=== PATIENT | male | born 1995 | race Caucasian/White ===

== ENCOUNTER 2022-12-22 11:10 | Emergency (ER) | payer MEDICAID, SELFPAY ==
[2022-12-22 11:13] VITALS: BP 118/78; PULSE 78; RESP 18; TEMP 36.6; O2SAT 99; BMI 20.9
--- NOTE | 2022-12-22 11:14 | XR_ITS ---
The [address] [address] Patient Name: SAYRA SALVADOR MRN: [id number] date: 1995 Sex: M Assigned Patient Location: ER Current Patient Location: ED.MAIN Accession/Order Number: [id number] Exam Date: 12/22/2022 11:25 Report Date: 12/22/2022 11:53 At the request of: ISAIAS ALVAREZ Procedure: XR hand LT 2V EXAM: XR hand LT 2V HISTORY: Pain COMPARISON: None. TECHNIQUE: 3 views of the left hand FINDINGS: There is no acute fracture-dislocation. No cortical erosion or focal osteopenia to suggest acute osteomyelitis. There is soft tissue swelling of the dorsal hand. XR/XR hand LT 2V IMPRESSION: No acute fracture. soft tissue swelling of the dorsal hand. Electronically authenticated by: MAIKOL ALEMAN Date: 12/22/2022 11:53
--- NOTE | 2022-12-22 11:15 | ED.UPPEXIN1 ---
HPI - Extremity Injury (Upper) General Chief Complaint: Extremity Injury, Upper Stated Complaint: UPPER EXTREMITY INJURY Time Seen by Provider: 12/22/22 11:14 Source: patient Mode of arrival: walk-in Limitations: no limitations History of Present Illness HPI narrative: patient here is an injury to his left hand. He had blunt trauma after hitting a wall last night. No other traumas or injuries at this time. Related Data Home Medications Medication Instructions Recorded Confirmed No Known Home Medications 12/22/22 12/22/22 Allergies Allergy/AdvReac Type Severity Reaction Status Date / Time amoxicillin AdvReac Intermediate Verified 12/22/22 11:12 Exam Narrative Exam Narrative: very pleasant oriented ?3 no other apparent injuries. Examination the right hand is normal. His left hand sustained the injury and he is left-handed dominant. He's got abrasions contusions and swelling over the 4th and 5th metatarsal metacarpals. He admits that he had a boxer fracture several years ago as well on the same hand. No other injuries are noted today. Neurovascular examination distally is normal. X-rays are pending Constitutional Vital Signs, click to edit/add: Last Vital Signs Temp 97.8 F 12/22/22 11:13 Pulse 78 12/22/22 11:13 Resp 18 12/22/22 11:13 BP 118/78 12/22/22 11:13 Pulse Ox 99 12/22/22 11:13 O2 Del Method Room Air 12/22/22 11:13 Course Vital Signs Vital signs: Vital Signs Temperature 97.8 F 12/22/22 11:13 Pulse Rate 78 12/22/22 11:13 Respiratory Rate 18 12/22/22 11:13 Blood Pressure 118/78 12/22/22 11:13 Pulse Oximetry 99 12/22/22 11:13 Oxygen Delivery Method Room Air 12/22/22 11:13 Temperature 97.8 F 12/22/22 11:13 Pulse Rate 78 12/22/22 11:13 Respiratory Rate 18 12/22/22 11:13 Blood Pressure 118/78 12/22/22 11:13 Pulse Oximetry 99 12/22/22 11:13 Oxygen Delivery Method Room Air 12/22/22 11:13 MDM - Extremity Injury (Upper) MDM Narrative Medical decision making narrative: x-rays are normal. He'll be placed in a hand splint. Ice and elevation were advice. This does not appear to be a bite type of injury. Discharge Plan Discharge Chief Complaint: Extremity Injury, Upper Clinical Impression: Contusion of hand, left Patient Disposition: Home, Self-Care Time of Disposition Decision: 11:42 Prescriptions / Home Meds: No Action No Known Home Medications Additional Instructions: ice/elevate wear splint for several days Stand Alone Forms: Portal Instructions Referrals: Physician,Non-Staff, MD [Primary Care Provider] - 1 week
== END 2022-12-22 11:56 | disposition home or self-care (01) ==
PROVIDERS: Emergency Provider Emergency Medicine Emergency Medical Services
DX: S60.222A Contusion of left hand, initial encounter (principal); W22.01XA Walked into wall, initial encounter
CPT/HCPCS: 73120; 99283